=== PATIENT | female | born 1930 | race Caucasian/White ===

== ENCOUNTER 2018-07-13 14:21 | Inpatient (IN) | payer OTHER ==
--- NOTE | 2018-07-13 14:34 | PDOC ---
History of Present Illness - General Chief Complaint: Pain Stated Complaint: PAIN - History of Present Illness Initial Comments: The patient is an 87F with a history of DVT/PE (IVC/Eliquis), CHF, HTN, and recent pancreatic cancer diagnosis (along with cholecysitis) in March who presents for 2 days of increasing RUQ abdominal pain associated with decreased appetite. The patient has been taking Tamadol 50mg PO PRN for pain with some relief and was switched recently to Oxycodone 10mg PO PRN for pain with minimal relief. The patient has only been taking the Oxy every 6-12 hours. Per the daughter, the patient and family have decided not to pursue chemotherapy due to the patient's poor prognosis and inability to tolerate chemotherapy. The patient was also told that she had cholecystits in March as well, but that surgery was not an option due to her medical conditional and likely inability to tolerate surgery. The patient has had decreased PO intake, reportedly secondary to decreased appetite. She denies N/V. Denies diarrhea, chest pain, or recent illness/fevers. PCP: Dr. Jhoana Odonnell Oncology: Dr. Alex Cortez 07/13/18 15:05 Past History - Past Medical History Allergies/Adverse Reactions: Allergies Allergy/AdvReac Type Severity Reaction Status Date / Time aspirin Allergy Verified 07/13/18 14:30 Home Medications: Ambulatory Orders Alprazolam 1 mg PO BID 07/13/18 Apixaban [Eliquis] 5 mg PO BID 07/13/18 Folic Acid 1 mg PO DAILY 07/13/18 Gabapentin 100 mg PO TID 07/13/18 Temazepam [Restoril] 30 mg PO DAILY 07/13/18 Tramadol HCl 50 mg PO QID 07/13/18 hydrALAZINE HCL [Apresoline -] 50 mg PO BID 07/13/18 oxyCODONE SR [Oxycontin] 10 mg PO DAILY 07/13/18 Cancer: Yes (PANCREATIC) Cardiac Disorders: Yes (H/O DVT: 03/2013; SHIRLENE FILTER: 07/2013) COPD: No Diabetes: Yes HTN: Yes (PULMONARY) Thyroid Disease: Yes (HYPO) - Surgical History Abdominal Surgery: Yes (HERNIA) - Suicide/Smoking/Psychosocial Hx Smoking Status: No Smoking History: Never smoked Have you smoked in the past 12 months: No Number of Cigarettes Smoked Daily: 0 Hx Alcohol Use: No Drug/Substance Use Hx: No Substance Use Type: None Hx Substance Use Treatment: No Review of Systems - Review of Systems Able to Perform ROS?: Yes Comments:: GENERAL/CONSTITUTIONAL: No fever or chills. + generalized weakness HEAD, EYES, EARS, NOSE AND THROAT: No change in vision. No ear pain or discharge. No sore throat CARDIOVASCULAR: No chest pain RESPIRATORY: No cough, wheezing GASTROINTESTINAL: No nausea, vomiting, diarrhea or constipation GENITOURINARY: No dysuria, frequency MUSCULOSKELETAL: No joint or muscle swelling or pain. No neck or back pain SKIN: No rash NEUROLOGIC: No headache, vertigo, loss of consciousness, or change in strength/ sensation HEMATOLOGIC/LYMPHATIC: +hx of dvt/pe ALLERGIC/IMMUNOLOGIC: No hives or skin allergy 07/13/18 15:11 *Physical Exam - Vital Signs Last Vital Signs Temp Pulse Resp BP Pulse Ox 99.4 F 101 H 16 147/84 85 L 07/13/18 14:33 07/13/18 14:25 07/13/18 14:25 07/13/18 14:25 07/13/18 14:25 - Physical Exam Comments: GENERAL: Awake, alert, in no acute distress, appears tired HEAD: No signs of trauma, normocephalic, atraumatic EYES: PERRL, EOMI, sclera anicteric, conjunctiva clear, b/l arcus ENT: Impaired hearing in R ear (chronic), nares patent, oropharynx clear without exudates. Moist mucosa NECK: Normal ROM, supple LUNGS: No distress, clear to auscultation bilaterally, poor inspiratory effort HEART: Regular rate and rhythm (80s in room), normal S1 and S2, no murmurs appreciated, peripheral pulses normal and equal bilaterally ABDOMEN: Protuberant, mild distention, RUQ and R flank TTP with guarding; no rebound. +BS. No overlying rash or ecchymosis EXTREMITIES : 1+BLE edema to lower 1/3 ramírez; 2+ DP b/l; movement intact in all extremities NEUROLOGICAL: Cranial nerves II through XII grossly intact. no focal sensorimotor deficits SKIN: Warm, Dry 07/13/18 16:26 ED Treatment Course - LABORATORY CBC & Chemistry Diagram: 07/14/18 05:30 07/14/18 05:30 Medical Decision Making - Medical Decision Making The patient is a 87F with a history of recently diagnosed pancreatic cancer (2017), DVT/PE (IVC/eliquis), Ddx: cholelithiasis/cholecystitis, mass effect/pancreatic mets/progression, biliary obstruction from mets, infection; consider ACS, PNA ED Course CMP, CBC, Trop I, UA, UCx ECG CXR; CT A&P w/ contrast 99.4 rectal temperature 07/13/18 15:20 ECG w/o evidence of acute ischemia Trop I 0.3, patient allergic to ASA and did not take morning dose of Eliquis, will give Eliquis 5mg PO once -Patient does not have a Consignee here -Consulted Cardiology, Dr. Cherry WBC 10 Cr 0.6, CrClearance >60 INR 1.5 Alk phos 224, LFTs wnl T bili not elevated Plan for admission for NSTEMI, failure to thrive, and worsening RUQ pain 07/13/18 18:30 RUQ U/S w/o evidence of biliary disease and no discrete evidence of mass lesion/ mets 07/13/18 18:34 *DC/Admit/Observation/Transfer Diagnosis at time of Disposition: RUQ abdominal pain, Presence of IVC filter, History of DVT (deep vein thrombosis) Pancreatic cancer Qualifiers: Pancreatic malignancy location: unspecified Qualified Code(s): C25.9 - Malignant neoplasm of pancreas, unspecified HTN (hypertension) Qualifiers: Hypertension type: unspecified Qualified Code(s): I10 - Essential (primary) hypertension - Discharge Dispostion Condition at time of disposition: Guarded Decision to Admit order: Yes - Referrals - Patient Instructions - Post Discharge Activity
--- NOTE | 2018-07-13 14:35 | PDOC ---
Attending Attestation - HPI HPI: This patient is an 87 year old female, with a PMHx of DVT/PE(IVC/Eliquis), CHF, HTN, and metastatic pancreatic cancer (dx in March 2018) as well as cholecystitis (also dx in March but no intervention due to medical status), who presents to the ED with 2 days of worsening RUQ pain. Patient notes associated loss of appetite. Currently on tramadol and oxycodone for pain management with little relief. As per family, patient decided not to pursue palliative care or chemotherapy due to prognosis. Denies recent nausea, vomit, chest pain, diarrhea. ONC: Alex Cortez PCP: Jhoana Benitez. <Shawna Melendez - Last Filed: 07/13/18 16:01> - Resident Resident Name: Ramin Hernandes - ED Attending Attestation I have performed the following: I have examined & evaluated the patient, The case was reviewed & discussed with the resident, I agree w/resident's findings & plan, Exceptions are as noted - Physicial Exam PE: 07/13/18 16:26 GENERAL: The patient is in no acute distress, answering questions appropriately HEAD: Normal EYES: PERRLA, EOMI, sclera anicteric, conjunctiva clear. ENT: Ears normal, nares patent, oropharynx clear without exudates. Moist mucous membranes. NECK: Normal range of motion, supple LUNGS: Breath sounds equal, clear to auscultation bilaterally. HEART:Regular rate and rhythm, normal S1 and S2 ABDOMEN: Soft, RUQ tenderness to palpation, No guarding, no rebound. EXTREMITIES: Normal range of motion NEUROLOGICAL: Cranial nerves II through XII grossly intact. Normal speech. No focal neurological deficits. - Medical Decision Making 07/13/18 16:28 EKG: NSR rate of 90 bpm, Left axis deviation, no st elevations or depressions, t waves upright 87 yo F with metastatic pancreatic cancer, not currently on chemo h/o PE s/p IVC filter and on Eliquis h/o cholecystitis, per daughter, pt too ill for cholecystectomy Pt/family have not made decisions regarding hospice/pt long-term management Will do: Labs CT EKG IVF Pt is on supplemental O2 CXR Abd CT/Abd US 07/13/18 17:17 Laboratory Tests 07/13/18 07/13/18 15:28 15:28 PT with INR 18.20 H INR 1.54 H PTT (Actin FS) 26.9 Sodium 134 L Potassium 4.6 Chloride 97 L Carbon Dioxide 31 Anion Gap 6 L BUN 11 Creatinine 0.6 Random Glucose 114 H AST 88 H ALT 21 Alkaline Phosphatase [address] - atalectasis, liver mass Trop slightly elevated Will admit <Vandana Villavicencio - Last Filed: 07/14/18 12:40>
[2018-07-13 16:19] LABS: INR 1.54 (0.83-1.09); PROTHROMBIN TIME (PATIENT) 18.2 SEC (9.7-13.0)
[2018-07-13 16:22] LABS: ACTIVATED PTT 26.9 SECONDS (25.2-36.5)
[2018-07-13 16:38] LABS: ALBUMIN 2.1 g/dl (3.4-5.0); ALK PHOS 224 U/L (45-117); ANION GAP 6 MMOL/L (8-16); BILIRUBIN,TOTAL 0.3 mg/dL (0.2-1); BLOOD UREA NITROGEN 11 mg/dL (7-18); CALCIUM 8.6 mg/dL (8.5-10.1); CHLORIDE 97 mmol/L (98-107); CO2 31 mmol/L (21-32); CREATININE 0.6 mg/dL (0.55-1.3); GLUCOSE,RANDOM 114 mg/dL (74-106); POTASSIUM 4.6 mmol/L (3.5-5.1); SGOT/AST 88 U/L (15-37); SGPT/ALT 21 U/L (13-61); SODIUM 134 mmol/L (136-145); TOT PROT 6.6 g/dl (6.4-8.2)
[2018-07-13 17:39] LABS: EOS % 1.6 % (0-4.5); HEMATOCRIT 28.4 % (32.4-45.2); HEMOGLOBIN 8.3 GM/dL (10.7-15.3); LYMPH % 14.1 % (8-40); MCH 21.7 pg (25.7-33.7); MCHC 29.4 g/dl (32.0-36.0); MEAN CELL VOLUME 73.8 fl (80-96); MEAN PLT VOLUME 6.9 fl (7.5-11.1); MONO % 9.4 % (3.8-10.2); NEUT % 73.9 % (42.8-82.8); PLATELET COUNT 457 K/MM3 (134-434); RBC 3.85 M/mm3 (3.60-5.2); RDW 17.4 % (11.6-15.6); WHITE BLOOD COUNT 10.2 K/mm3 (4.0-10.0)
[2018-07-13] MEDS ORDERED: APIXABAN 5 MG TABLET PO ONE (18:21)
[2018-07-13] MEDS ORDERED: ACETAMINOPHEN 1000 MG/100 ML VIAL (NON FORMULARY) IVPB ONE (18:33)
[2018-07-13] MEDS ORDERED: ACETAMINOPHEN INJECTION 100 ML IVPB ONE (18:39)
--- NOTE | 2018-07-13 20:23 | HP ---
CHIEF COMPLAINT: Right Upper Quadrant Pain, SOB PCP: Dr. Jhoana Benitez Oncologist: Dr. Alex Cortez HISTORY OF PRESENT ILLNESS: This is a 87 y/o woman with significant medical history of DVT/PE w/IVC Filter on Eliquis, CHF, HTN, recent dx Pancreatic Ca 03/2018 (no Chemo, no RT), Cholecystitis. Who presents to the ED with family for RUQ pain, generalized weakness, difficulty ambulating and SOB x 2 days. Patient is Khmer speaking only, the daughter translated per pt. request. The patient's daughter also reports that the patient has had a poor appetite and has been constipated x 4 days. Per the daughter the pt has had difficulty ambulating due to her weakness. The daughter (POA), is interested in hospice and palliative services for the patient. Per daughter, Pt. denies fever, chills, cough, CP, vomiting, diarrhea, hematochezia, melena, dysuria. No recent sick contacts. ER course was notable for: (1) Troponin I 0.39 (2) EKG- NSR 90bpm, no ST or TWI (3) Chest Xray-LLL consolidation with small pleural effusion (4) RUQ US- without evidence of biliary diseaseand no discrete evidence of mass/ lesions/mets (5) CTAP- large attenuation density in the right hepatic lobe, smaller hypodensities in the left hepatic lobe suspicious for malignancy Recent Travel: None PAST MEDICAL HISTORY: See HPI PAST SURGICAL HISTORY: Hernia Repair IVC filter Social History: Smoking: Never Alcohol: None Drugs: None Family History: Allergies aspirin Allergy (Verified 07/13/18 14:30) HOME MEDICATIONS: Home Medications Medication Instructions Recorded Alprazolam 1 mg PO BID 07/13/18 Apixaban [Eliquis] 5 mg PO BID 07/13/18 Folic Acid 1 mg PO DAILY 07/13/18 Gabapentin 100 mg PO TID 07/13/18 Temazepam [Restoril] 30 mg PO DAILY 07/13/18 Tramadol HCl 50 mg PO QID 07/13/18 hydrALAZINE HCL [Apresoline -] 50 mg PO BID 07/13/18 oxyCODONE SR [Oxycontin] 10 mg PO DAILY 07/13/18 REVIEW OF SYSTEMS CONSTITUTIONAL: generalized weakness, malaise, loss of appetite Absent: fever, chills, diaphoresis, weight change HEENT: Absent: rhinorrhea, nasal congestion, throat pain, throat swelling, difficulty swallowing, mouth swelling, ear pain, eye pain, visual changes CARDIOVASCULAR: peripheral edema Absent: chest pain, syncope, palpitations, irregular heart rate, lightheadedness RESPIRATORY: shortness of breath Absent: cough, dyspnea with exertion, orthopnea, wheezing, stridor, hemoptysis GASTROINTESTINAL: abdominal pain, abdominal distension, constipation Absent: nausea, vomiting, diarrhea, melena, hematochezia GENITOURINARY: Absent: dysuria, frequency, urgency, hesitancy, hematuria, flank pain, genital pain MUSCULOSKELETAL: Absent: myalgia, arthralgia, joint swelling, back pain, neck pain SKIN: Absent: rash, itching, pallor HEMATOLOGIC/IMMUNOLOGIC: Absent: easy bleeding, easy bruising, lymphadenopathy, frequent infections ENDOCRINE: Absent: unexplained weight gain, unexplained weight loss, heat intolerance, cold intolerance NEUROLOGIC: unsteady gait Absent: headache, focal weakness or paresthesias, dizziness, seizure, mental status changes, bladder or bowel incontinence PSYCHIATRIC: Absent: anxiety, depression, suicidal or homicidal ideation, hallucinations. PHYSICAL EXAMINATION Vital Signs - 24 hr 07/13/18 07/13/18 07/13/18 14:25 14:33 14:56 Temperature 99.4 F 99.4 F Pulse Rate 101 H Pulse Rate [ Apical] Respiratory 16 Rate Blood Pressure 147/84 Blood Pressure [Left Arm] Blood Pressure [Right Arm] O2 Sat by Pulse 85 L Oximetry (%) 07/13/18 07/13/18 07/13/18 15:05 15:58 16:27 Temperature Pulse Rate Pulse Rate [ 82 82 Apical] Respiratory 16 16 Rate Blood Pressure Blood Pressure 145/62 [Left Arm] Blood Pressure 142/80 145/62 [Right Arm] O2 Sat by Pulse 100 100 100 Oximetry (%) 07/13/18 07/13/18 17:10 18:00 Temperature 99.0 F Pulse Rate Pulse Rate [ 82 Apical] Respiratory 16 Rate Blood Pressure Blood Pressure 140/65 [Left Arm] Blood Pressure [Right Arm] O2 Sat by Pulse 100 99 Oximetry (%) GENERAL: Awake, alert, and fully oriented, in no acute distress. HEAD: Normal with no signs of trauma. EYES: Pupils equal, round and reactive to light, extraocular movements intact, sclera anicteric, conjunctiva clear. No lid lag. EARS, NOSE, THROAT: Ears normal, nares patent, oropharynx clear without exudates. Dry mucous membranes. NECK: Normal range of motion, supple without lymphadenopathy, JVD, or masses. LUNGS: Breath sounds equal, clear to auscultation bilaterally. No wheezes, and no crackles. No accessory muscle use. HEART: Regular rate and rhythm, normal S1 and S2 without murmur, rub or gallop. ABDOMEN: Soft, obese, no guarding, no rebound, no masses. No hepatomegaly or splenomegaly. Tenderness to RUQ, distended, hypoactive bowel sounds. MUSCULOSKELETAL: Normal range of motion at all joints. No bony deformities or tenderness. No CVA tenderness. UPPER EXTREMITIES: 2+ pulses, warm, well-perfused. No cyanosis. No clubbing. No peripheral edema. LOWER EXTREMITIES: 2+ pulses, warm, well-perfused. No calf tenderness. BL LE +1 peripheral edema. NEUROLOGICAL: Cranial nerves II-XII intact. Normal speech. Gait not observed. PSYCHIATRIC: Cooperative. Good eye contact. Appropriate mood and affect. SKIN: Warm, dry, normal turgor, no rashes or lesions noted, normal capillary refill. Laboratory Results - last 24 hr 07/13/18 07/13/18 07/13/18 15:28 15:28 15:28 WBC 10.2 H RBC 3.85 Hgb 8.3 L Hct 28.4 L MCV 73.8 L MCH 21.7 L MCHC 29.4 L RDW 17.4 H Plt Count 457 H MPV 6.9 L Absolute Neuts (auto) 7.5 Neutrophils % 73.9 Lymphocytes % 14.1 D Monocytes % 9.4 Eosinophils % 1.6 Basophils % 1.0 Nucleated RBC % 0 PT with INR 18.20 H INR 1.54 H PTT (Actin FS) 26.9 VBG pH Cancelled POC VBG pCO2 Cancelled POC VBG pO2 Cancelled Mixed VBG HCO3 Cancelled Sodium Potassium Chloride Carbon Dioxide Anion Gap BUN Creatinine Creat Clearance w eGFR Random Glucose Lactic Acid Calcium Total Bilirubin AST ALT Alkaline Phosphatase Troponin I Total Protein Albumin 07/13/18 07/13/18 07/13/18 15:28 15:28 15:28 WBC RBC Hgb Hct MCV MCH MCHC RDW Plt Count MPV Absolute Neuts (auto) Neutrophils % Lymphocytes % Monocytes % Eosinophils % Basophils % Nucleated RBC % PT with INR INR PTT (Actin FS) VBG pH POC VBG pCO2 POC VBG pO2 Mixed VBG HCO3 Sodium 134 L Potassium 4.6 Chloride 97 L Carbon Dioxide 31 Anion Gap 6 L BUN 11 Creatinine 0.6 Creat Clearance w eGFR > 60 Random Glucose 114 H Lactic Acid 1.2 Calcium 8.6 Total Bilirubin 0.3 AST 88 H ALT 21 Alkaline Phosphatase 224 H Troponin I 0.39 H Total Protein 6.6 Albumin 2.1 L ASSESSMENT/PLAN: This is a 87 y/o woman with a PMHx of: DVT/PE with IVC Filter on Eliquis, CHF, HTN,recent dx Pancreatic Ca(no chemo, no RT, 03/2018), Cholecystitis. Admitted to Telemetry for NSTEMI, RUQ pain, Acute Exacerbation of CHF, Failure to Thrive for further evaluation of their emergent condition. Plan: Cardiovascular: 1. NSTEMI- Admit to Telemetry, Serial Enzymes, Appreciate Cardiology consult, pt allergic- Asa, given Eliquis in ED, would consider Plavix or Brilinta will defer to [employer], Lipid Profile, HgbA1c in am, Echo, Duplex of LE r/o DVT 2.Acute Exacerbation of CHF- Likely secondary to pleural effusion vs PNA vs PE, chest xray showed ?LLL consolidation vs small left pleural effusion, O2, monitor Spo2, Appreciate Cardiology consult 3.Hypertension- stable, monitor BP, continue hydralazine with parameters, monitor renal function 4. DVT/PE hx- s/p IVC Filter, Continue Eliquis, Duplex of LE r/o DVT-pending, Wells Score 2 Pulmonary: 1. SOB- Likely secondary to CHF Exacerbation vs Pleural Effusion vs PE vs Malignancy, CXR reviewed, Wells Score 4.0, consider CTA, O2, Monitor vitals, Consider Pulm consult if condition worsens Gastrointestinal: 1. RUQ Pain- CTAP showed large ill defined low attenuation density in the right hepatic lobe, other ill defined smaller hypodensities in the left hepatic lobe suspicious for malignancy, RUQ US showed- without evidence of biliary disease and no discrete evidence of mass lesions/mets, Alk phos 244, AST 84, T bili-nl consider GI consult Oncology: 1. Pancreatic Ca- newly dx 03/2018, no chemo, no RT, CTAP reviewed, RUQ US reviewed, Appreciate Oncology consult, Appreciate Palliative Consult Endocrine: 1. Failure to Thrive- Daughter reports decreased appetite x several days likely secondary to Pancreatic Ca, Albumin 2.1, Appreciate RD consult, monitor BMP closely FEN: PO fluids as tolerated, no IVF 2/2 CHF hx Replete lytes as indicated Low Na Diet, ad juan DVT ppx OOB Continue Eliquis Code Status: Full Code Dispo: Requires Inpatient Care Problem List - Problem (1) NSTEMI (non-ST elevated myocardial infarction) Code(s): I21.4 - NON-ST ELEVATION (NSTEMI) MYOCARDIAL INFARCTION (2) SOB (shortness of breath) Code(s): R06.02 - SHORTNESS OF BREATH (3) RUQ abdominal pain Code(s): R10.11 - RIGHT UPPER QUADRANT PAIN (4) Pancreatic cancer Code(s): C25.9 - MALIGNANT NEOPLASM OF PANCREAS, UNSPECIFIED Qualifiers: Pancreatic malignancy location: unspecified Qualified Code(s): C25.9 - Malignant neoplasm of pancreas, unspecified (5) CHF (congestive heart failure) Code(s): I50.9 - HEART FAILURE, UNSPECIFIED (6) HTN (hypertension) Code(s): I10 - ESSENTIAL (PRIMARY) HYPERTENSION Qualifiers: Hypertension type: unspecified Qualified Code(s): I10 - Essential (primary ) hypertension (7) History of DVT (deep vein thrombosis) Code(s): Z86.718 - PERSONAL HISTORY OF OTHER VENOUS THROMBOSIS AND EMBOLISM (8) Presence of IVC filter Code(s): Z95.828 - PRESENCE OF OTHER VASCULAR IMPLANTS AND GRAFTS (9) Failure to thrive Code(s): [id number] - (10) Osteoarthritis Code(s): M19.90 - UNSPECIFIED OSTEOARTHRITIS, UNSPECIFIED SITE Visit type - Emergency Visit Emergency Visit: Yes ED Registration Date: 07/13/18 Care time: The patient presented to the Emergency Department on the above date and was hospitalized for further evaluation of their emergent condition. - New Patient This patient is new to me today: Yes Date on this admission: 07/13/18 - Critical Care Critical Care patient: No Hospitalist Screening - Colonoscopy Questionnaire Colonoscopy Questionnaire: Colonoscopy Questionnaire - Patient: 50 - 75 years old and never had a screening colonoscopy: Unknown History of colon or rectal polyps, or CA: Unknown History of IBD, Crohn's disease or UC: Unknown History of abdominal radiation therapy as a child: Unknown - Relative: 1 with colon or rectal CA, or polyps at age 60 or younger: Unknown Colon or rectal CA diagnosed at age 45 or younger: Unknown Multiple relatives with colon or rectal CA: Unknown - Outcome: Screening Result: Negative Screen
[2018-07-13] MEDS: GABAPENTIN 100 MG CAPSULE (FP) PO SCH (22:53)
[2018-07-13] MEDS: oxyCODONE HCL 10 MG SUSTAINED ACTING TABLET PO PRN (22:53)
[2018-07-13] MEDS: APIXABAN 5 MG TABLET PO SCH (22:53)
[2018-07-13] MEDS: hydrALAZINE HCL 50 MG TABLET (FP) PO SCH (22:53)
[2018-07-13] MEDS: ALPRAZolam 0.25 MG TABLET PO SCH (22:55)
[2018-07-14] MEDS: GABAPENTIN 100 MG CAPSULE (FP) PO SCH ×3 (05:44→22:04)
[2018-07-14 07:47] LABS: BASO % 0.8 % (0-2.0); EOS % 2.6 % (0-4.5); HEMATOCRIT 26.5 % (32.4-45.2); HEMOGLOBIN 7.8 GM/dL (10.7-15.3); LYMPH % 16.7 % (8-40); MCH 21.7 pg (25.7-33.7); MCHC 29.5 g/dl (32.0-36.0); MEAN CELL VOLUME 73.7 fl (80-96); MEAN PLT VOLUME 6.8 fl (7.5-11.1); MONO % 10.3 % (3.8-10.2); NEUT % 69.6 % (42.8-82.8); PLATELET COUNT 393 K/MM3 (134-434); RDW 16.9 % (11.6-15.6); WHITE BLOOD COUNT 9.3 K/mm3 (4.0-10.0)
[2018-07-14 07:52] LABS: ANION GAP 6 MMOL/L (8-16); BLOOD UREA NITROGEN 12 mg/dL (7-18); CALCIUM 8.6 mg/dL (8.5-10.1); CHLORIDE 98 mmol/L (98-107); CHOLESTEROL 163 mg/dL (50-200); CO2 31 mmol/L (21-32); CREATININE 0.6 mg/dL (0.55-1.3); GLUCOSE,RANDOM 95 mg/dL (74-106); HDL CHOLESTEROL 18 mg/dL (40-60); POTASSIUM 4.2 mmol/L (3.5-5.1); SODIUM 135 mmol/L (136-145); TRIGLYCERIDES 145 mg/dL (0-150)
[2018-07-14 09:17] LABS: INR 2.03 (0.83-1.09); PROTHROMBIN TIME (PATIENT) 24.1 SEC (9.7-13.0)
[2018-07-14 09:20] LABS: ACTIVATED PTT 30.1 SECONDS (25.2-36.5)
[2018-07-14] MEDS: FOLIC ACID 1 MG TABLET (FP) PO SCH (09:26)
[2018-07-14] MEDS: APIXABAN 5 MG TABLET PO SCH ×2 (09:26→22:04)
[2018-07-14] MEDS: oxyCODONE HCL 10 MG SUSTAINED ACTING TABLET PO PRN ×2 (09:26→17:20)
[2018-07-14] MEDS: hydrALAZINE HCL 50 MG TABLET (FP) PO SCH ×2 (09:26→22:04)
--- NOTE | 2018-07-14 11:43 | CON.CARD ---
Consult Consult Specialty:: Cardiology Referred by:: Dr. Xiao Reason for Consultation:: Cardiac evaluation - History of Present Illness Chief Complaint: RUQ pain History of Present Illness: Patient is an 87 year old female with underlying history of DVT/PE s/p IVC filter and on NOAC, HTN, pancreatic CA who presents with RUQ pain, weakness and SOB. Troponin was elevated and thus cardiology consultation was called. She complains of right sided pain and intermittent SOB. She denies paroxysmal nocturnal dyspnea or orthopnea. She denies fever or chills. She denies nausea, vomiting, diarrhea or abdominal pain. She denies headache or lightheadedness. - History Source History Provided By: Patient, Medical Record Limitations to Obtaining History: Language Barrier - Past Medical History Cardio/Vascular: Yes: HTN Pulmonary: Yes: Pulmonary Embolus, Other (DVT) Heme/Onc: Yes: Cancer (Pancreatic) - Alcohol/Substance Use Hx Alcohol Use: No - Smoking History Smoking history: Never smoked Have you smoked in the past 12 months: No Aproximately how many cigarettes per day: 0 Home Medications - Allergies Allergies/Adverse Reactions: Allergies Allergy/AdvReac Type Severity Reaction Status Date / Time aspirin Allergy Verified 07/13/18 14:30 - Home Medications Home Medications: Ambulatory Orders Alprazolam 1 mg PO BID 07/13/18 Apixaban [Eliquis] 5 mg PO BID 07/13/18 Folic Acid 1 mg PO DAILY 07/13/18 Gabapentin 100 mg PO TID 07/13/18 Temazepam [Restoril] 30 mg PO DAILY 07/13/18 Tramadol HCl 50 mg PO QID 07/13/18 hydrALAZINE HCL [Apresoline -] 50 mg PO BID 07/13/18 oxyCODONE SR [Oxycontin] 10 mg PO DAILY 07/13/18 Review of Systems - Review of Systems Constitutional: denies: Chills, Fever Cardiovascular: reports: Shortness of Breath. denies: Chest Pain, Palpitations Respiratory: reports: SOB. denies: Cough, Hemoptysis, Orthopnea, PND Gastrointestinal: denies: Abdominal Pain, Constipation, Diarrhea, Melena, Nausea , Rectal Bleeding, Vomiting Musculoskeletal: denies: Joint Pain Neurological: denies: Dizziness, Headache, Seizure, Syncope Vital Signs: Vital Signs Temperature 98.0 F 07/14/18 06:00 Pulse Rate 88 07/14/18 06:00 Respiratory Rate 20 07/14/18 06:00 Blood Pressure 134/75 07/14/18 06:00 O2 Sat by Pulse Oximetry (%) 96 07/14/18 05:00 HENT: Yes: Atraumatic Neck: Yes: Supple Respiratory: Yes: Diminished Gastrointestinal: Yes: Normal Bowel Sounds, Soft. No: Tenderness Cardiovascular: Yes: Regular Rate and Rhythm JVD: No Carotid Bruit: No PMI: Non-Displaced Heart Sounds: Yes: S1, S2. No: Gallop Edema: No - Other Data Labs, Other Data: CBC, BMP 07/14/18 05:30 07/14/18 05:30 INR, PTT INR 2.03 (0.83-1.09) H 07/14/18 05:30 Troponin, BNP 07/13/18 07/13/18 07/14/18 15:28 23:10 05:30 Troponin I 0.39 H 0.34 H 0.32 H 07/14/18 07/14/18 05:30 05:30 Troponin I 0.29 H Cancelled NSR, LAD Problem List - Problems (1) DVT (deep venous thrombosis) Code(s): I82.409 - ACUTE EMBOLISM AND THOMBOS UNSP DEEP VN UNSP LOWER EXTREMITY Qualifiers: Affected thrombotic vein of extremity: unspecified vein of extremity Chronicity: unspecified (2) Demand ischemia Code(s): I24.8 - OTHER FORMS OF ACUTE ISCHEMIC HEART DISEASE (3) Failure to thrive Code(s): [id number] - Qualifiers: Failure to thrive age range: in adult Qualified Code(s): R62.7 - Adult failure to thrive (4) HTN (hypertension) Code(s): I10 - ESSENTIAL (PRIMARY) HYPERTENSION Qualifiers: Hypertension type: unspecified Qualified Code(s): I10 - Essential (primary ) hypertension (5) Pancreatic cancer Code(s): C25.9 - MALIGNANT NEOPLASM OF PANCREAS, UNSPECIFIED Qualifiers: Pancreatic malignancy location: unspecified Qualified Code(s): C25.9 - Malignant neoplasm of pancreas, unspecified (6) Presence of IVC filter Code(s): Z95.828 - PRESENCE OF OTHER VASCULAR IMPLANTS AND GRAFTS (7) RUQ abdominal pain Code(s): R10.11 - RIGHT UPPER QUADRANT PAIN (8) SOB (shortness of breath) Code(s): R06.02 - SHORTNESS OF BREATH Assessment/Plan 1. RUQ pain with underlying pancreatic CA 2. HTN 3. Demand ischemia likely CAD 4. DVT/PE s/p IVC filter PLAN: 1. Continue Eliquis 2. Hydralazine 3. Echocardiography to assess LV/RV and valvular function Further plans are to follow Juan Cherry MD
--- NOTE | 2018-07-14 12:34 | PN ---
Progress Note, Physician History of Present Illness: pt seen/ examined chart reviewed discussed with pts daughter in detail who is at bedside Er records reviewed. 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 Who presents to the ED with family for RUQ pain, generalized weakness, difficulty ambulating and SOB x 2 days. Patient is [place] speaking only, the daughter translated per pt. request. The patient's daughter also reports that the patient has had a poor appetite and has been constipated x 4 days. Per the daughter the pt has had difficulty ambulating due to her weakness. The daughter (POA), is interested in hospice and palliative services for the patient. Per daughter, Pt. denies fever, chills, cough, CP, vomiting, diarrhea, hematochezia, melena, dysuria. No recent sick contacts. pt at present comfortable. + ve pain -- rue - with movement - Current Medication List Current Medications: Active Medications Alprazolam (Xanax -) 1 mg PO HS [facility] Last Admin: 07/13/18 22:55 Dose: 1 mg Apixaban (Eliquis -) 5 mg PO BID [facility] Last Admin: 07/14/18 09:26 Dose: 5 mg Folic Acid (Folic Acid -) 1 mg PO DAILY [facility] Last Admin: 07/14/18 09:26 Dose: 1 mg Gabapentin (Neurontin -) 100 mg PO TID [facility] Last Admin: 07/14/18 05:44 Dose: 100 mg Hydralazine HCl (Apresoline -) 50 mg PO BID [facility] Last Admin: 07/14/18 09:26 Dose: 50 mg Potassium Chloride/Dextrose/Sod Cl (D5-1/2ns+10 Meq Kcl -) 10 meq in 1,000 mls @ 100 mls/hr IV ASDIR [facility] Oxycodone HCl (Oxycontin -) 10 mg PO DAILY PRN PRN Reason: PAIN LEVEL 6-10 Last Admin: 07/14/18 09:26 Dose: 10 mg - Objective Vital Signs: Vital Signs Temperature 98.0 F 07/14/18 06:00 Pulse Rate 88 07/14/18 06:00 Respiratory Rate 20 07/14/18 06:00 Blood Pressure 134/75 07/14/18 06:00 O2 Sat by Pulse Oximetry (%) 96 07/14/18 05:00 Constitutional: Yes: No Distress, Obese Eyes: Yes: Conjunctiva Clear Neck: Yes: Supple Cardiovascular: Yes: Regular Rate and Rhythm Respiratory: Yes: Diminished Gastrointestinal: Yes: Soft, Tenderness (ruq) Edema: No Neurological: Yes: Alert Psychiatric: Yes: Alert Labs: CBC, BMP 07/14/18 05:30 07/14/18 05:30 INR, PTT INR 2.03 (0.83-1.09) H 07/14/18 05:30 Problem List - Problems (1) DVT (deep venous thrombosis) Code(s): I82.409 - ACUTE EMBOLISM AND THOMBOS UNSP DEEP VN UNSP LOWER EXTREMITY (2) Pancreatic cancer Code(s): C25.9 - MALIGNANT NEOPLASM OF PANCREAS, UNSPECIFIED Qualifiers: Pancreatic malignancy location: unspecified Qualified Code(s): C25.9 - Malignant neoplasm of pancreas, unspecified (3) Presence of IVC filter Code(s): Z95.828 - PRESENCE OF OTHER VASCULAR IMPLANTS AND GRAFTS (4) RUQ abdominal pain Code(s): R10.11 - RIGHT UPPER QUADRANT PAIN (5) Acute DVT of left tibial vein Code(s): I82.442 - ACUTE EMBOLISM AND THROMBOSIS OF LEFT TIBIAL VEIN Assessment/Plan Discussed in detail with pt pain control start on fluids overall condition/ prognosis poor Palliative care consult pts daughter not consenting for dnr/di-- yet-- says will discuss with her mom. will follow time spend 4o min in examining/ documenting and in discussion.
[2018-07-14 12:42] VITALS: BMI 34.0
[2018-07-14] MEDS: D5-1/2NS+10 MEQ KCL - 10 MEQ/1,000 ML INFUS.BAG IV SCH (17:20)
--- NOTE | 2018-07-14 20:10 | CONSULT ---
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 Who presents to the ED with family for RUQ pain, generalized weakness, difficulty ambulating and SOB x 2 days. PAST MEDICAL HISTORY: HTN CHF Pancreatic Cancer DVT/PE PAST SURGICAL HISTORY: Hernia Repair IVC filter Social History: Smoking: Never Alcohol: None Drugs: None Family History: Allergies aspirin Allergy (Verified 07/13/18 14:30) HOME MEDICATIONS: Home Medications Medication Instructions Recorded Alprazolam 1 mg PO BID 07/13/18 Apixaban [Eliquis] 5 mg PO BID 07/13/18 Folic Acid 1 mg PO DAILY 07/13/18 Gabapentin 100 mg PO TID 07/13/18 Temazepam [Restoril] 30 mg PO DAILY 07/13/18 Tramadol HCl 50 mg PO QID 07/13/18 hydrALAZINE HCL [Apresoline -] 50 mg PO BID 07/13/18 oxyCODONE SR [Oxycontin] 10 mg PO DAILY 07/13/18 PHYSICAL EXAMINATION Last Vital Signs Temp Pulse Resp BP Pulse Ox 98.2 F 85 18 138/69 96 07/14/18 14:29 07/14/18 14:29 07/14/18 14:29 07/14/18 14:29 07/14/18 05:00 Cor: RSR, No murmurs, No gallops Lungs: Clear to P&A Abd: Soft, Normal bowel sounds, No organomegaly Ext:No significant edema Abnormal Lab Results 07/13/18 07/14/18 07/14/18 23:10 05:30 05:30 Hgb 7.8 L Hct 26.5 L MCV 73.7 L MCH 21.7 L MCHC 29.5 L RDW 16.9 H MPV 6.8 L Monocytes % 10.3 H PT with INR INR Sodium Anion Gap Troponin I 0.34 H 0.32 H Total LDL Cholesterol HDL Cholesterol 07/14/18 07/14/18 05:30 05:30 Hgb Hct MCV MCH MCHC RDW MPV Monocytes % PT with INR 24.10 H INR 2.03 H Sodium 135 L Anion Gap 6 L Troponin I 0.29 H Total LDL Cholesterol 130 H HDL Cholesterol 18 L Active Medications Generic Name Dose Route Start Last Admin Trade Name Freq PRN Reason Stop Dose Admin Alprazolam 1 mg 07/13/18 22:00 07/13/18 22:55 Xanax - PO 1 mg HS KIANNA Administration Apixaban 5 mg 07/13/18 22:00 07/14/18 09:26 Eliquis - PO 5 mg BID KIANNA Administration Folic Acid 1 mg 07/14/18 10:00 07/14/18 09:26 Folic Acid - PO 1 mg DAILY KIANNA Administration Gabapentin 100 mg 07/13/18 22:00 07/14/18 17:20 Neurontin - PO 100 mg TID KIANNA Administration Hydralazine HCl 50 mg 07/13/18 22:00 07/14/18 09:26 Apresoline - PO 50 mg BID KIANNA Administration Potassium Chloride/Dextrose/Sod Cl 10 meq in 1,000 mls @ 100 mls/hr 07/14/18 12:30 07/14/18 17:20 D5-1/2ns+10 Meq Kcl - IV 100 mls/hr ASDIR KIANNA Administration Oxycodone HCl 10 mg 07/13/18 21:49 07/14/18 17:20 Oxycontin - PO 10 mg DAILY PRN Administration PAIN LEVEL 6-10 A/P This is a 87 y/o woman with a PMHx of: DVT/PE with IVC Filter on Eliquis, CHF, HTN,recent dx Pancreatic Ca(no chemo, no RT, 03/2018), Cholecystitis. Admitted to Telemetry for NSTEMI, RUQ pain, Acute Exacerbation of CHF, Failure to Thrive for further evaluation of their emergent condition. h/o pancreatic cancer--CT imaging shows larhe 10cm rt. hepatic lobe and 2 left hepatic lobe metastases poor performance status will need family meeting to discuss goals of care
[2018-07-14] MEDS: ALPRAZolam 0.25 MG TABLET PO SCH (22:05)
--- NOTE | 2018-07-14 23:17 | EKG ---
Test Reason : Blood Pressure : / mmHG Vent. Rate : 090 BPM Atrial Rate : 090 BPM P-R Int : 164 ms QRS Dur : 080 ms QT Int : 352 ms P-R-T Axes : 085 -37 053 degrees QTc Int : 430 ms NORMAL SINUS RHYTHM LEFT AXIS DEVIATION PULMONARY DISEASE PATTERN ABNORMAL ECG WHEN COMPARED WITH ECG OF 25-JUL-2013 13:47, NO SIGNIFICANT CHANGE WAS FOUND Confirmed by BENNY AGUILAR MD ([id number]) on 07/14/2018 11:17:35 PM Referred By: Confirmed By:BENNY AGUILAR MD
[2018-07-15] MEDS: GABAPENTIN 100 MG CAPSULE (FP) PO SCH ×3 (06:56→21:37)
[2018-07-15] MEDS ORDERED: INSULIN (NOVOLOG) ASPART 100 UNITS/ML 10ML VIAL ONE (08:08)
[2018-07-15] MEDS: APIXABAN 5 MG TABLET PO SCH ×2 (09:48→21:37)
[2018-07-15] MEDS: hydrALAZINE HCL 50 MG TABLET (FP) PO SCH ×2 (09:48→21:37)
[2018-07-15] MEDS: FOLIC ACID 1 MG TABLET (FP) PO SCH (09:48)
--- NOTE | 2018-07-15 10:36 | PN ---
Progress Note, Physician Chief Complaint: Events noted RUQ pain History of Present Illness: Patient was seen and examined. Awake and alert. Chart was reviewed - Current Medication List Current Medications: Active Medications Alprazolam (Xanax -) 1 mg PO HS [facility] Last Admin: 07/14/18 22:05 Dose: 1 mg Apixaban (Eliquis -) 5 mg PO BID [facility] Last Admin: 07/15/18 09:48 Dose: 5 mg Folic Acid (Folic Acid -) 1 mg PO DAILY [facility] Last Admin: 07/15/18 09:48 Dose: 1 mg Gabapentin (Neurontin -) 100 mg PO TID [facility] Last Admin: 07/15/18 06:56 Dose: 100 mg Hydralazine HCl (Apresoline -) 50 mg PO BID [facility] Last Admin: 07/15/18 09:48 Dose: 50 mg Potassium Chloride/Dextrose/Sod Cl (D5-1/2ns+10 Meq Kcl -) 10 meq in 1,000 mls @ 100 mls/hr IV ASDIR [facility] Last Admin: 07/14/18 17:20 Dose: 100 mls/hr Oxycodone HCl (Oxycontin -) 10 mg PO DAILY PRN PRN Reason: PAIN LEVEL 6-10 Last Admin: 07/14/18 17:20 Dose: 10 mg - Objective Vital Signs: Vital Signs Temperature 98.9 F 07/15/18 02:00 Pulse Rate 95 H 07/15/18 02:00 Respiratory Rate 20 07/15/18 02:00 Blood Pressure 133/75 07/15/18 02:00 O2 Sat by Pulse Oximetry (%) 96 07/14/18 21:00 Neck: Yes: Supple Cardiovascular: Yes: Regular Rate and Rhythm, S1, S2 Respiratory: Yes: Diminished Gastrointestinal: Yes: Normal Bowel Sounds, Soft. No: Tenderness Edema: No Problem List - Problems (1) DVT (deep venous thrombosis) Code(s): I82.409 - ACUTE EMBOLISM AND THOMBOS UNSP DEEP VN UNSP LOWER EXTREMITY Qualifiers: Affected thrombotic vein of extremity: unspecified vein of extremity Chronicity: unspecified (2) Demand ischemia Code(s): I24.8 - OTHER FORMS OF ACUTE ISCHEMIC HEART DISEASE (3) Failure to thrive Code(s): [id number] - Qualifiers: Failure to thrive age range: in adult Qualified Code(s): R62.7 - Adult failure to thrive (4) HTN (hypertension) Code(s): I10 - ESSENTIAL (PRIMARY) HYPERTENSION Qualifiers: Hypertension type: unspecified Qualified Code(s): I10 - Essential (primary ) hypertension (5) Pancreatic cancer Code(s): C25.9 - MALIGNANT NEOPLASM OF PANCREAS, UNSPECIFIED Qualifiers: Pancreatic malignancy location: unspecified Qualified Code(s): C25.9 - Malignant neoplasm of pancreas, unspecified (6) Presence of IVC filter Code(s): Z95.828 - PRESENCE OF OTHER VASCULAR IMPLANTS AND GRAFTS (7) RUQ abdominal pain Code(s): R10.11 - RIGHT UPPER QUADRANT PAIN (8) SOB (shortness of breath) Code(s): R06.02 - SHORTNESS OF BREATH Assessment/Plan 1. RUQ pain with underlying pancreatic CA 2. HTN 3. Demand ischemia likely CAD 4. DVT/PE s/p IVC filter PLAN: 1. Continue Eliquis 2. Hydralazine 3. Echocardiography to assess LV/RV and valvular function 4. Palliative care Further plans are to follow Juan Cherry MD
[2018-07-15] MEDS: D5-1/2NS+10 MEQ KCL - 10 MEQ/1,000 ML INFUS.BAG IV SCH (12:30)
--- NOTE | 2018-07-15 15:42 | PN ---
Progress Note (short form) - Note Progress Note: pt seen/ examined family at bedside all f/u noted eats a little Vital Signs Temp 98 F 07/15/18 14:15 Pulse 94 H 07/15/18 14:15 Resp 18 07/15/18 14:15 BP 112/65 07/15/18 14:15 Pulse Ox 97 07/15/18 09:00 Intake & Output 07/14/18 07/15/18 07/15/18 23:59 11:59 23:59 Intake Total 477 107 5983 Balance 100 185 8317 Weight 198 lb Intake: IV 300 800 D5-1/2NS+10 MEQ KCL - 10 800 meq In 1,000 ml @ 100 mls /hr IV ASDIR [facility] Rx#: [id number] SL 300 Oral 480 120 240 Other: Voiding Method Incontinent Incontinent # Unmeasured Voids Void 1 1 2 Bowel Movement No Height 5 ft 4 in Body Mass Index (BMI) 34.0 Active Medications Alprazolam (Xanax -) 1 mg PO HS [facility] Last Admin: 07/14/18 22:05 Dose: 1 mg Apixaban (Eliquis -) 5 mg PO BID [facility] Last Admin: 07/15/18 09:48 Dose: 5 mg Folic Acid (Folic Acid -) 1 mg PO DAILY [facility] Last Admin: 07/15/18 09:48 Dose: 1 mg Gabapentin (Neurontin -) 100 mg PO TID [facility] Last Admin: 07/15/18 13:42 Dose: 100 mg Hydralazine HCl (Apresoline -) 50 mg PO BID [facility] Last Admin: 07/15/18 09:48 Dose: 50 mg Potassium Chloride/Dextrose/Sod Cl (D5-1/2ns+10 Meq Kcl -) 10 meq in 1,000 mls @ 100 mls/hr IV ASDIR [facility] Last Admin: 07/15/18 12:30 Dose: 100 mls/hr Oxycodone HCl (Oxycontin -) 10 mg PO DAILY PRN PRN Reason: PAIN LEVEL 6-10 Last Admin: 07/14/18 17:20 Dose: 10 mg CBC, BMP 07/14/18 05:30 07/14/18 05:30 Physical Constitutional: Yes: No Distress, Obese. Eyes: Yes: Conjunctiva Clear Neck: Yes: Supple Cardiovascular: Yes: Regular Rate and Rhythm Respiratory: Yes: Diminished Gastrointestinal: Yes: Soft, Tenderness (ruq). Edema: No Neurological: Yes: Alert Psychiatric: Yes: Alert Problem List - Problems (1) DVT (deep venous thrombosis) Code(s): I82.409 - ACUTE EMBOLISM AND THOMBOS UNSP DEEP VN UNSP LOWER EXTREMITY (2) Pancreatic cancer Code(s): C25.9 - MALIGNANT NEOPLASM OF PANCREAS, UNSPECIFIED Qualifiers: Pancreatic malignancy location: unspecified Qualified Code(s): C25.9 - Malignant neoplasm of pancreas, unspecified (3) Presence of IVC filter Code(s): Z95.828 - PRESENCE OF OTHER VASCULAR IMPLANTS AND GRAFTS (4) RUQ abdominal pain Code(s): R10.11 - RIGHT UPPER QUADRANT PAIN (5) Acute DVT of left tibial vein Code(s): I82.442 - ACUTE EMBOLISM AND THROMBOSIS OF LEFT TIBIAL VEIN Assessment/Plan continue present care fluids overall condition/ prognosis poor Palliative care consult requested family to decide further care discussed with Dr. Griffin also today Family meeting -- goal of care. will follow Problem List - Problems (1) DVT (deep venous thrombosis) Code(s): I82.409 - ACUTE EMBOLISM AND THOMBOS UNSP DEEP VN UNSP LOWER EXTREMITY (2) Pancreatic cancer Code(s): C25.9 - MALIGNANT NEOPLASM OF PANCREAS, UNSPECIFIED Qualifiers: Pancreatic malignancy location: unspecified Qualified Code(s): C25.9 - Malignant neoplasm of pancreas, unspecified (3) Presence of IVC filter Code(s): Z95.828 - PRESENCE OF OTHER VASCULAR IMPLANTS AND GRAFTS (4) RUQ abdominal pain Code(s): R10.11 - RIGHT UPPER QUADRANT PAIN (5) Acute DVT of left tibial vein Code(s): I82.442 - ACUTE EMBOLISM AND THROMBOSIS OF LEFT TIBIAL VEIN
[2018-07-15] MEDS: ALPRAZolam 0.25 MG TABLET PO SCH (21:37)
[2018-07-16] MEDS: GABAPENTIN 100 MG CAPSULE (FP) PO SCH ×3 (05:43→22:49)
[2018-07-16] MEDS: hydrALAZINE HCL 50 MG TABLET (FP) PO SCH ×2 (09:24→22:49)
[2018-07-16] MEDS: FOLIC ACID 1 MG TABLET (FP) PO SCH (09:24)
[2018-07-16] MEDS: APIXABAN 5 MG TABLET PO SCH ×2 (09:24→22:49)
--- NOTE | 2018-07-16 09:53 | PN ---
Progress Note (short form) - Note Progress Note: pt comfortable afebrile daughter at bedside discussed with daughter-- says pt has expressed before that she dont want to tubed/ resuscitated she signed dnr requesting home hospice -- I discussed with onsite case manager-- will request hospice to evaluate Daughter also reports- pt eats ok-- ate all breakfast. Vital Signs Temp 97 F L 07/16/18 05:00 Pulse 94 H 07/16/18 05:00 Resp 18 07/16/18 05:00 BP 153/61 07/16/18 05:00 Pulse Ox 96 07/15/18 21:00 Intake & Output 07/15/18 07/15/18 07/16/18 11:59 23:59 11:59 Intake Total 420 1240 600 Balance 420 1240 600 Intake: IV 300 800 600 D5-1/2NS+10 MEQ KCL - 10 800 600 meq In 1,000 ml @ 100 mls /hr IV ASDIR [facility] Rx#: [id number] SL 300 Oral 120 440 Other: Voiding Method Incontinent Incontinent # Unmeasured Voids Void 1 2 Bowel Movement No Active Medications Alprazolam (Xanax -) 1 mg PO HS [facility] Last Admin: 07/15/18 21:37 Dose: 1 mg Apixaban (Eliquis -) 5 mg PO BID [facility] Last Admin: 07/16/18 09:24 Dose: 5 mg Folic Acid (Folic Acid -) 1 mg PO DAILY [facility] Last Admin: 07/16/18 09:24 Dose: 1 mg Gabapentin (Neurontin -) 100 mg PO TID [facility] Last Admin: 07/16/18 05:43 Dose: 100 mg Hydralazine HCl (Apresoline -) 50 mg PO BID [facility] Last Admin: 07/16/18 09:24 Dose: 50 mg Potassium Chloride/Dextrose/Sod Cl (D5-1/2ns+10 Meq Kcl -) 10 meq in 1,000 mls @ 100 mls/hr IV ASDIR [facility] Last Admin: 07/15/18 12:30 Dose: 100 mls/hr Oxycodone HCl (Oxycontin -) 10 mg PO DAILY PRN PRN Reason: PAIN LEVEL 6-10 Last Admin: 07/14/18 17:20 Dose: 10 mg CBC, BMP 07/14/18 05:30 09/29/18 05:30 Microbiology 07/13/18 15:28 Blood Culture - Preliminary Blood - Peripheral Venous NO GROWTH OBTAINED AFTER 48 HOURS, INCUBATION TO CONTINUE FOR 3 DAYS. 07/13/18 15:28 Blood Culture - Preliminary Blood - Peripheral Venous NO GROWTH OBTAINED AFTER 48 HOURS, INCUBATION TO CONTINUE FOR 3 DAYS. Physical Constitutional: Yes: No Distress, Obese. Eyes: Yes: Conjunctiva Clear Neck: Yes: Supple Cardiovascular: Yes: Regular Rate and Rhythm Respiratory: Yes: Diminished Gastrointestinal: Yes: Soft, Tenderness (ruq). Edema: No Neurological: Yes: Alert Psychiatric: Yes: Alert Assessment/Plan continue present care fluids-- will d/c -- pt eating ok overall condition/ prognosis poor Palliative care consult requested DNR/DI Home hospice eval d/c tele will follow Problem List - Problems (1) DVT (deep venous thrombosis) Code(s): I82.409 - ACUTE EMBOLISM AND THOMBOS UNSP DEEP VN UNSP LOWER EXTREMITY (2) Pancreatic cancer Code(s): C25.9 - MALIGNANT NEOPLASM OF PANCREAS, UNSPECIFIED Qualifiers: Pancreatic malignancy location: unspecified Qualified Code(s): C25.9 - Malignant neoplasm of pancreas, unspecified (3) Presence of IVC filter Code(s): Z95.828 - PRESENCE OF OTHER VASCULAR IMPLANTS AND GRAFTS (4) RUQ abdominal pain Code(s): R10.11 - RIGHT UPPER QUADRANT PAIN (5) Acute DVT of left tibial vein Code(s): I82.442 - ACUTE EMBOLISM AND THROMBOSIS OF LEFT TIBIAL VEIN
--- NOTE | 2018-07-16 11:11 | PN ---
Progress Note, Physician History of Present Illness: Weak and anorexic. - Current Medication List Current Medications: Active Medications Alprazolam (Xanax -) 1 mg PO HS [facility] Last Admin: 07/15/18 21:37 Dose: 1 mg Apixaban (Eliquis -) 5 mg PO BID [facility] Last Admin: 07/16/18 09:24 Dose: 5 mg Folic Acid (Folic Acid -) 1 mg PO DAILY [facility] Last Admin: 07/16/18 09:24 Dose: 1 mg Gabapentin (Neurontin -) 100 mg PO TID [facility] Last Admin: 07/16/18 05:43 Dose: 100 mg Hydralazine HCl (Apresoline -) 50 mg PO BID [facility] Last Admin: 07/16/18 09:24 Dose: 50 mg Potassium Chloride/Dextrose/Sod Cl (D5-1/2ns+10 Meq Kcl -) 10 meq in 1,000 mls @ 100 mls/hr IV ASDIR [facility] Last Admin: 07/15/18 12:30 Dose: 100 mls/hr Oxycodone HCl (Oxycontin -) 10 mg PO DAILY PRN PRN Reason: PAIN LEVEL 6-10 Last Admin: 07/14/18 17:20 Dose: 10 mg - Objective Vital Signs: Vital Signs Temperature 97 F L 07/16/18 05:00 Pulse Rate 94 H 07/16/18 05:00 Respiratory Rate 18 07/16/18 05:00 Blood Pressure 153/61 07/16/18 05:00 O2 Sat by Pulse Oximetry (%) 96 07/15/18 21:00 Constitutional: Yes: No Distress, Calm Neck: Yes: Supple Cardiovascular: Yes: Regular Rate and Rhythm Respiratory: Yes: Regular, Diminished Gastrointestinal: Yes: Soft, Hypoactive Bowel Sounds Edema: No Labs: CBC, BMP 07/14/18 05:30 07/14/18 05:30 INR, PTT INR 2.03 (0.83-1.09) H 07/14/18 05:30 - ....Imaging EKG: Report Reviewed (Tele: SR) Problem List - Problems (1) Demand ischemia Code(s): I24.8 - OTHER FORMS OF ACUTE ISCHEMIC HEART DISEASE (2) Acute DVT of left tibial vein Code(s): I82.442 - ACUTE EMBOLISM AND THROMBOSIS OF LEFT TIBIAL VEIN (3) Failure to thrive Code(s): [id number] - Qualifiers: Failure to thrive age range: in adult Qualified Code(s): R62.7 - Adult failure to thrive (4) HTN (hypertension) Code(s): I10 - ESSENTIAL (PRIMARY) HYPERTENSION Qualifiers: Hypertension type: unspecified Qualified Code(s): I10 - Essential (primary ) hypertension (5) History of DVT (deep vein thrombosis) Code(s): Z86.718 - PERSONAL HISTORY OF OTHER VENOUS THROMBOSIS AND EMBOLISM (6) Pancreatic cancer Code(s): C25.9 - MALIGNANT NEOPLASM OF PANCREAS, UNSPECIFIED Qualifiers: Pancreatic malignancy location: unspecified Qualified Code(s): C25.9 - Malignant neoplasm of pancreas, unspecified (7) Presence of IVC filter Code(s): Z95.828 - PRESENCE OF OTHER VASCULAR IMPLANTS AND GRAFTS Assessment/Plan 1. Failure to thrive 2. Pancreatic cancer 3. DVT with h/o IVC filter on NOAC 4. Anemia 5. CAD with demand ischemia 6. HTN P:1. Palliative care, home hospice eval, d/c telemetry 2. Trops trending downward 3. Continue Eliquis 5 bid, hydralazine 50 bid
[2018-07-16] MEDS: D5-1/2NS+10 MEQ KCL - 10 MEQ/1,000 ML INFUS.BAG IV SCH (13:28)
--- NOTE | 2018-07-16 15:19 | ECHO ---
Name: JUSTIN SHELTON Exam:Adult Echocardiogram Study Date: 07/16/2018 11:24 AM Age: 87 yrs Height: 63 in Weight: 198 lb BSA: 1.9 m2 MMode/2D Measurements & Calculations IVSd: 1.5 cm Ao root diam: 2.8 cm LVIDd: 3.8 cm LA dimension: 3.2 cm LVIDs: 2.2 cm LVPWd: 1.4 cm LVPWs: 2.1 cm EDV(Teich): 60.3 ml ESV(Teich): 16.5 ml Doppler Measurements & Calculations MV E max sebastian: 58.2 cm/sec Ao V2 max: 101.3 cm/sec MV A max sebastian: 108.6 cm/sec Ao max P.1 mmHg MV E/A: 0.54 MV dec time: 0.14 sec LV V1 max P.1 mmHg PA V2 max: 101.8 cm/sec LV V1 max: 88.4 cm/sec PA max P.1 mmHg Med Peak E' Sebastian: 8.1 cm/sec Med E/e': 7.2 Lat Peak E' Sebastian: 6.7 cm/sec Lat E/e': 8.7 Procedure A complete two-dimensional transthoracic echocardiogram was performed (2D, M-mode, Doppler and color flow Doppler). Left Ventricle The left ventricle is normal in size. There is moderate concentric left ventricular hypertrophy. Left ventricular systolic function is normal. Ejection Fraction = 60-65%. E/A reversal consistent with but not diagnostic of poor LV compliance. No regional wall motion abnormalities noted. Right Ventricle The right ventricle is normal size. The right ventricular systolic function is normal. RV systolic TD I is 11 cm/s. Atria The left atrial size is normal. Right atrial size is normal. Mitral Valve There is mild to moderate mitral annular calcification. There is mild mitral regurgitation. Tricuspid Valve The tricuspid valve is normal in structure and function. No tricuspid regurgitation. Aortic Valve There is mild aortic sclerosis.;. No aortic regurgitation is present. Pulmonic Valve The pulmonic valve is not well visualized. Great Vessels The aortic root is normal size. Pericardium/Pleura There is no pericardial effusion. Interpretation Summary The left ventricle is normal in size. There is moderate concentric left ventricular hypertrophy. Left ventricular systolic function is normal. No regional wall motion abnormalities noted. Ejection Fraction = 60-65%. E/A reversal consistent with but not diagnostic of poor LV compliance The right ventricular systolic function is normal. The left atrial size is normal. Right atrial size is normal. There is mild to moderate mitral annular calcification. There is mild mitral regurgitation. There is mild aortic sclerosis.; There is no pericardial effusion. When compared to study dated 05/10/13, no significant changes Juan Cherry MD 07/16/2018 03:18 PM
[2018-07-16] MEDS: ALPRAZolam 0.25 MG TABLET PO SCH (22:48)
[2018-07-17] MEDS: GABAPENTIN 100 MG CAPSULE (FP) PO SCH ×3 (06:07→21:17)
[2018-07-17] MEDS: hydrALAZINE HCL 50 MG TABLET (FP) PO SCH ×2 (10:14→21:17)
[2018-07-17] MEDS: APIXABAN 5 MG TABLET PO SCH ×2 (10:14→21:17)
[2018-07-17] MEDS: FOLIC ACID 1 MG TABLET (FP) PO SCH (10:14)
[2018-07-17] MEDS ORDERED: oxyCODONE HCL 10 MG SUSTAINED ACTING TABLET PO SCH (10:30)
[2018-07-17] MEDS ORDERED: FENTANYL PATCH WASTE TD PRN (12:05)
[2018-07-17] MEDS ORDERED: DOCUSATE SODIUM 100 MG CAPSULE (FP) PO PRN (12:05)
--- NOTE | 2018-07-17 12:10 | PN ---
Progress Note (short form) - Note Progress Note: resting comfortably daughter at bedside Vital Signs - 24 hr 07/16/18 07/16/18 07/16/18 19:14 21:00 22:59 Temperature 98.3 F 99.3 F Pulse Rate 90 98 H Respiratory 18 19 Rate Blood Pressure 149/70 152/68 O2 Sat by Pulse 98 Oximetry (%) 07/17/18 06:30 Temperature 99.3 F Pulse Rate 100 H Respiratory 19 Rate Blood Pressure 133/57 L O2 Sat by Pulse Oximetry (%) Current Medications Generic Name Dose Route Start Last Admin Trade Name Freq PRN Reason Stop Dose Admin Alprazolam 1 mg 07/17/18 22:00 Xanax - PO HS KIANNA Apixaban 5 mg 07/17/18 10:00 07/17/18 10:14 Eliquis - PO 5 mg BID KIANNA Administration Docusate Sodium 100 mg 07/17/18 12:05 Colace - PO Q8H PRN CONSTIPATION Fentanyl 1 patch 07/17/18 12:15 Duragesic 12mcg Patch - TD 07/24/18 12:05 Q72H KIANNA Folic Acid 1 mg 07/17/18 10:00 07/17/18 10:14 Folic Acid - PO 1 mg DAILY KIANNA Administration Gabapentin 100 mg 07/17/18 14:00 Neurontin - PO TID KIANNA Hydralazine HCl 50 mg 07/17/18 10:00 07/17/18 10:14 Apresoline - PO 50 mg BID KIANNA Administration Miscellaneous 1 each 07/17/18 12:05 Duragesic Patch Waste MC PRN PRN PAIN Oxycodone HCl 10 mg 07/17/18 12:06 Roxicodone - PO Q6H PRN PAIN LEVEL 6-10 S1 S2 RRR LUNGS DECREASED abd- SOFT, DISTENDED EDEMA+ Assessment- Metastatic cancer- possible gallbladder? pancreatic -PE plan add Fentanyl patch along with Oxycodone for better Pain control Xanax as needed for home hospice pt is DNR/DNI
[2018-07-17] MEDS ORDERED: fentaNYL 12mcg/hr PATCH.TD72 TD SCH (12:15)
--- NOTE | 2018-07-17 12:22 | PN ---
Progress Note, Physician Chief Complaint: Events noted Not in distress History of Present Illness: Patient was seen and examined. Awake and alert. Chart was reviewed - Current Medication List Current Medications: Active Medications Alprazolam (Xanax -) 1 mg PO HS [facility] Apixaban (Eliquis -) 5 mg PO BID [facility] Last Admin: 07/17/18 10:14 Dose: 5 mg Docusate Sodium (Colace -) 100 mg PO Q8H PRN PRN Reason: CONSTIPATION Fentanyl (Duragesic 12mcg Patch -) 1 patch TD Q72H [facility] Stop: 07/24/18 12:05 Folic Acid (Folic Acid -) 1 mg PO DAILY [facility] Last Admin: 07/17/18 10:14 Dose: 1 mg Gabapentin (Neurontin -) 100 mg PO TID [facility] Hydralazine HCl (Apresoline -) 50 mg PO BID [facility] Last Admin: 07/17/18 10:14 Dose: 50 mg Miscellaneous (Duragesic Patch Waste) 1 each TD PRN PRN PRN Reason: PAIN Oxycodone HCl (Roxicodone -) 10 mg PO Q6H PRN PRN Reason: PAIN LEVEL 6-10 - Objective Vital Signs: Vital Signs Temperature 99.3 F 07/17/18 06:30 Pulse Rate 100 H 07/17/18 06:30 Respiratory Rate 19 07/17/18 06:30 Blood Pressure 133/57 L 07/17/18 06:30 O2 Sat by Pulse Oximetry (%) 98 07/16/18 21:00 Neck: Yes: Supple Cardiovascular: Yes: Regular Rate and Rhythm, S1, S2 Respiratory: Yes: Diminished Gastrointestinal: Yes: Normal Bowel Sounds, Soft. No: Tenderness Edema: No Problem List - Problems (1) DVT (deep venous thrombosis) Code(s): I82.409 - ACUTE EMBOLISM AND THOMBOS UNSP DEEP VN UNSP LOWER EXTREMITY Qualifiers: Affected thrombotic vein of extremity: unspecified vein of extremity Chronicity: unspecified (2) Demand ischemia Code(s): I24.8 - OTHER FORMS OF ACUTE ISCHEMIC HEART DISEASE (3) Failure to thrive Code(s): LEA5881 - Qualifiers: Failure to thrive age range: in adult Qualified Code(s): R62.7 - Adult failure to thrive (4) HTN (hypertension) Code(s): I10 - ESSENTIAL (PRIMARY) HYPERTENSION Qualifiers: Hypertension type: unspecified Qualified Code(s): I10 - Essential (primary ) hypertension (5) Pancreatic cancer Code(s): C25.9 - MALIGNANT NEOPLASM OF PANCREAS, UNSPECIFIED Qualifiers: Pancreatic malignancy location: unspecified Qualified Code(s): C25.9 - Malignant neoplasm of pancreas, unspecified (6) Presence of IVC filter Code(s): Z95.828 - PRESENCE OF OTHER VASCULAR IMPLANTS AND GRAFTS (7) RUQ abdominal pain Code(s): R10.11 - RIGHT UPPER QUADRANT PAIN (8) SOB (shortness of breath) Code(s): R06.02 - SHORTNESS OF BREATH Assessment/Plan 1. RUQ pain with underlying pancreatic CA 2. HTN 3. Demand ischemia likely CAD 4. DVT/PE s/p IVC filter PLAN: 1. Continue Eliquis 2. Hydralazine and conservative therapy 3. Echocardiography report on chart 4. Palliative care/hospice Further plans are to follow Juan Cherry MD
[2018-07-17] MEDS ORDERED: ALPRAZolam 0.25 MG TABLET PO PRN (14:17)
[2018-07-17] MEDS: oxyCODONE HCL 5 MG TABLET PO PRN (21:18)
[2018-07-17] MEDS ORDERED: ALPRAZolam 0.25 MG TABLET PO SCH (22:00)
[2018-07-18] MEDS: GABAPENTIN 100 MG CAPSULE (FP) PO SCH ×2 (05:15→13:56)
[2018-07-18 05:25] VITALS: BP 131/63
[2018-07-18 09:15] VITALS: PULSE 94; TEMP 98.3
[2018-07-18] MEDS: APIXABAN 5 MG TABLET PO SCH (10:45)
[2018-07-18] MEDS: hydrALAZINE HCL 50 MG TABLET (FP) PO SCH (10:45)
[2018-07-18] MEDS: FOLIC ACID 1 MG TABLET (FP) PO SCH (10:45)
--- NOTE | 2018-07-18 11:07 | DS ---
Physical Examination Vital Signs: Vital Signs Temperature 98.3 F 07/18/18 09:14 Pulse Rate 94 H 07/18/18 09:14 Respiratory Rate 20 07/18/18 09:14 Blood Pressure 131/63 07/18/18 09:14 O2 Sat by Pulse Oximetry (%) 97 07/17/18 22:00 Labs: CBC, BMP 07/14/18 05:30 07/14/18 05:30 Discharge Summary Reason For Visit: RIGHT UPPER QUADRANT ABDOMINAL PAIN, MALIGNANT Current Active Problems RUQ abdominal pain (Acute) Pancreatic cancer (Acute) Presence of IVC filter (Acute) History of DVT (deep vein thrombosis) (Acute) HTN (hypertension) (Acute) NSTEMI (non-ST elevated myocardial infarction) (Acute) SOB (shortness of breath) (Acute) CHF (congestive heart failure) (Acute) Failure to thrive (Acute) DVT (deep venous thrombosis) (Acute) Acute DVT of left tibial vein (Acute) Demand ischemia (Acute) Condition: Guarded - Instructions Referrals: Jhoana Benitez MD [Primary Care Provider] - - Home Medications Comprehensive Discharge Medication List: Ambulatory Orders Alprazolam 1 mg PO BID 07/13/18 Apixaban [Eliquis] 5 mg PO BID 07/13/18 Folic Acid 1 mg PO DAILY 07/13/18 Gabapentin 100 mg PO TID 07/13/18 Temazepam [Restoril] 30 mg PO DAILY 07/13/18 Tramadol HCl 50 mg PO QID 07/13/18 hydrALAZINE HCL [Apresoline -] 50 mg PO BID 07/13/18 oxyCODONE SR [Oxycontin] 10 mg PO DAILY 07/13/18
[2018-07-18] MEDS: oxyCODONE HCL 5 MG TABLET PO PRN (14:00)
== END 2018-07-18 14:59 | disposition home or self-care (01) | DRG 436 ==
LOC: JER 14:21 → JERBED 15:15 → J4W 22:16 → J6S 07-16 15:15
PROVIDERS: ADMIT Internal Medicine; ATTEND Internal Medicine
DX: C25.9 Malignant neoplasm of pancreas, unspecified (principal); J98.11 Atelectasis; I24.8 Other forms of acute ischemic heart disease; C78.7 Secondary malignant neoplasm of liver and intrahepatic bile duct; Z86.718 Personal history of other venous thrombosis and embolism; R62.7 Adult failure to thrive; Z79.01 Long term (current) use of anticoagulants; I11.0 Hypertensive heart disease with heart failure; I50.9 Heart failure, unspecified; Z86.711 Personal history of pulmonary embolism; R16.0 Hepatomegaly, not elsewhere classified; E66.9 Obesity, unspecified; Z68.34 Body mass index [BMI] 34.0-34.9, adult; Z95.828 Presence of other vascular implants and grafts; D64.9 Anemia, unspecified; I25.10 Atherosclerotic heart disease of native coronary artery without angina pectoris; Z66 Do not resuscitate; Z51.5 Encounter for palliative care
CPT/HCPCS: 36415; 71045-TC-FY; 74177-TC; 76705-TC; 80048; 80053; 80061; 82550; 82553; 83036; 83605; 83721; 83735; 84100; 84484; 85025; 85610; 85730; 87040; 93005; 93010; 93306-TC; 93970-TC; 97116-GP; 97161-GP; 99285-25; J0131